=== PATIENT | female | born 1980 | race Caucasian/White ===

== ENCOUNTER 2018-01-16 08:50 | Emergency (ER) | payer OTHER ==
[2018-01-16] MEDS ORDERED: NA CHLORIDE 0.9% 1,000 ML ONE (09:14)
[2018-01-16 09:22] LABS: Absolute Lymphocytes (CBC) 1.8 K/uL (0.7-4.9); Absolute Monocytes 0.7 K/uL (0.1-1.3); Basophils % 0.9 % (0-1.3); Eosinophils % 0.8 % (0-4.4); Hematocrit 42.2 % (36.0-45.0); Lymphocytes % 31.2 % (15.3-44.8); MCV 97.9 fL (80-100); MPV 8.2 fL (7.6-11.3); Monocytes % 13.2 % (3.3-12.3); RBC Red Blood Cell Count 4.31 M/uL (3.86-4.86)
[2018-01-16 09:32] LABS: Protime INR 0.89
--- NOTE | 2018-01-16 09:37 | RAD REPORT ---
EXAM DESCRIPTION: CT - Head Brain Wo Cont - 01/16/2018 9:18 am CLINICAL HISTORY: Numbness and dizziness COMPARISON: None. TECHNIQUE: Computed axial tomography of the head was obtained. IV contrast was not requested. All CT scans are performed using dose optimization technique as appropriate and may include automated exposure control or mA/KV adjustment according to patient size. FINDINGS: An intracranial bleed is not seen . The ventricles are normal in caliber. No extra-axial fluid collection is noted. A 20 millimeter mass is present within the left frontal convexity medially which appears extra-axial. It contains calcification. Fluid within the sinuses/ mastoids is not seen. IMPRESSION: 20 millimeter left frontal mass likely representing a meningioma. Surrounding edema is n ot seen. No acute intracranial abnormality is noted. If the patient's symptoms persist MRI of the brain would be recommended
[2018-01-16 09:51] LABS: ALT/SGPT 30 U/L (12-78); AST/SGOT 29 U/L (15-37); Albumin 4.2 g/dL (3.4-5.0); Alkaline Phosphatase 57 U/L (45-117); BUN Blood Urea Nitrogen 14 mg/dL (7-18); Bicarbonate 28 mmol/L (21-32); Bilirubin Direct < 0.1 mg/dL (0-0.2); Bilirubin Total 0.3 mg/dL (0.2-1.0); Glucose Level 107 mg/dL (74-106); Magnesium 1.8 mg/dL (1.8-2.4); Protein, Total 7.8 g/dL (6.4-8.2); Sodium Level 135 mmol/L (136-145)
[2018-01-16 09:54] LABS: Potassium 2.9 mmol/L (3.5-5.1)
--- NOTE | 2018-01-16 10:42 | RAD REPORT ---
EXAM DESCRIPTION: RAD - Chest Single View - 01/16/2018 9:26 am CLINICAL HISTORY: Dizziness, shortness of breath COMPARISON: December 2016 TECHNIQUE: AP portable chest image was obtained 0924 hours . FINDINGS: Lungs are clear. Heart and vasculature are normal. No measurable pleural effusion and no p neumothorax. No gross bony abnormality seen. No acute aortic findings suspected. IMPRESSION: No acute cardiopulmonary process. No significant change from comparison.
--- NOTE | 2018-01-16 11:03 | RAD REPORT ---
EXAM DESCRIPTION: MRI - Brain W/Wo Cont - 01/16/2018 10:47 am CLINICAL HISTORY: Numbness and dizziness. Brain mass COMPARISON: January 16, 2018 cat scan TECHNIQUE: Axial, sagittal, and coronal magnetic images of the brain were obtained. 16 cc Magnevist administered intravenously. FINDINGS: A 19 millimeter mass is present along the medial left frontal convexity. It is extra-axial . It has Iso signal on T2 weighted sequences. It exhibits intense enhancement. No surrounding edema i s noted. This has the appearance of a meningioma. Diffusion-weighted/ADC mapping does not reveal evidence of acute infarction. The ventricles are normal caliber. An extra-axial fluid collection is not seen. The sinuses and mastoids are clear. IMPRESSION: 19 millimeter meningioma along the left frontal convexity without surrounding edema
--- NOTE | 2018-01-16 11:40 | EDPHYS ---
Physician Documentation [facility] Name: Sonya Grullon Age: 37 yrs Sex: Female : 1980 Arrival Date: 01/16/2018 Time: 08:51 Bed 5 Private MD: Jaycob Hillman T ED Physician Shae Nolberto HPI: 01/16 12:59 This 37 yrs old Female presents to ER via Wheelchair with complaints of wa Numbness Of Face, Loss Of Vision, DISORIENTED. 12:59 This 37 yrs old Female presents to ER via Wheelchair with complaints of wa Numbness Of Face, Loss Of Vision, DISORIENTED. 11:34 Onset: The symptoms/episode began/occurred just prior to arrival. Duration: This was a wa single incident, The episode is continuous. Context: the episode(s) was witnessed, by co-worker(s). 12:59 The patient's problem is reported as sudden onset dizziness, described as lightheaded wa with feeling she was going to pass out. noted R eye blurry then extended to L eye as well. happened while on the toilet urinating. denies PATTERSON, speech impediment, SOB, chest pain or palpitations. denies facial numbness to me. . The symptoms are alleviated by nothing. The symptoms are aggravated by nothing. Associated signs and symptoms: Pertinent positives: dizziness, lightheadedness, Pertinent negatives: abdominal pain, chest pain, confusion, headache. Severity of symptoms: At their worst the symptoms were moderate in the emergency department the symptoms have improved markedly. Patient's baseline: Neuro: alert and fully oriented, Motor: no deficits, Ambulation: walks without assistance, Speech: normal, The patient has a previous history of none. The patient has not experienced similar symptoms in the past. The patient has not recently seen a physician. Historical: - Allergies: 09:16 No Known Allergies; ph - Home Meds: 09:16 None [Active]; ph - PMHx: 09:16 None; ph - PSHx: 09:16 kidney donor (L); Hysterectomy; breast augmenation; ph - Immunization history:: Adult Immunizations unknown. - Social history:: Smoking status: Patient uses tobacco products, smokes one pack cigarettes per day. - Ebola Screening: : No symptoms or risks identified at this time. - Family history:: not pertinent. - Hospitalizations: : No recent hospitalization is reported. ROS: 13:03 Constitutional: Negative for fever, chills, and weight loss, Eyes: Negative for injury, wa pain, redness, and discharge, ENT: Negative for injury, pain, and discharge, Neck: Negative for injury, pain, and swelling, Cardiovascular: Negative for chest pain, palpitations, and edema, Respiratory: Negative for shortness of breath, cough, wheezing, and pleuritic chest pain, Abdomen/GI: Negative for abdominal pain, nausea, vomiting, diarrhea, and constipation, Back: Negative for injury and pain, : Negative for injury, bleeding, discharge, and swelling, MS/Extremity: Negative for injury and deformity, Skin: Negative for injury, rash, and discoloration. 13:03 Neuro: Positive for dizziness, Negative for altered mental status, gait disturbance, headache, hearing loss, numbness, speech changes, near syncope. 13:03 All other systems are negative. Exam: 13:04 Radiologist reports: 20 mm meningioma. otherwise no acute process wa 13:04 Constitutional: This is a well developed, well nourished patient who is awake, alert, and in no acute distress. Head/Face: Normocephalic, atraumatic. Eyes: Pupils equal round and reactive to light, extra-ocular motions intact. Lids and lashes normal. Conjunctiva and sclera are non-icteric and not injected. Cornea within normal limits. Periorbital areas with no swelling, redness, or edema. ENT: Nares patent. No nasal discharge, no septal abnormalities noted. Tympanic membranes are normal and external auditory canals are clear. Oropharynx with no redness, swelling, or masses, exudates, or evidence of obstruction, uvula midline. Mucous membranes moist. Neck: Trachea midline, no thyromegaly or masses palpated, and no cervical lymphadenopathy. Supple, full range of motion without nuchal rigidity, or vertebral point tenderness. No Meningismus. Chest/axilla: Normal chest wall appearance and motion. Nontender with no deformity. No lesions are appreciated. Cardiovascular: Regular rate and rhythm with a normal S1 and S2. No gallops, murmurs, or rubs. Normal PMI, no JVD. No pulse deficits. Respiratory: Lungs have equal breath sounds bilaterally, clear to auscultation and percussion. No rales, rhonchi or wheezes noted. No increased work of breathing, no retractions or nasal flaring. Abdomen/GI: Soft, non-tender, with normal bowel sounds. No distension or tympany. No guarding or rebound. No evidence of tenderness throughout. Back: No spinal tenderness. No costovertebral tenderness. Full range of motion. Skin: Warm, dry with normal turgor. Normal color with no rashes, no lesions, and no evidence of cellulitis. MS/ Extremity: Pulses equal, no cyanosis. Neurovascular intact. Full, normal range of motion. Psych: Awake, alert, with orientation to person, place and time. Behavior, mood, and affect are within normal limits. 13:04 Neuro: Orientation: is normal, Mentation: is normal, Memory: is normal, Cranial nerves: grossly normal, Cerebellar function: normal finger to nose testing, heel to simms testing is normal, able to perform alternating rapid hand movements, Motor: is normal, Sensation: is normal, Gait: is steady. Vital Signs: 09:13 BP 158 / 96; Pulse 118; Resp 24; Temp 97.9; Pulse Ox 98% on R/A; Weight 50.35 kg; ph Height 5 ft. 5 in. (165.10 cm); Pain 0/10; 09:54 BP 119 / 61; Pulse 85; Resp 16; Pulse Ox 100% on R/A; tw2 11:09 BP 112 / 85; Pulse 76; Resp 18; Pulse Ox 99% on R/A; ph 09:13 Body Mass Index 18.47 (50.35 kg, 165.10 cm) ph NIH Stroke Scale Scores: 09:05 NIHSS Score: 0 ph MDM: 09:06 Patient medically screened. fl 13:06 Differential diagnosis: CVA, TIA, metabolic disorder, nml exam. will work up with fl cardiac and neuro eval. will reassess. Data reviewed: vital signs, nurses notes, lab test result(s), EKG, radiologic studies. Test interpretation: by ED physician or midlevel provider: EKG: HR 97. nml ekg. labs noted for hypokalemia. MRI brain: no infarct. L medial frontal 19 mm meningioma. Response to treatment: the patient's symptoms have markedly improved after treatment, the patient's symptoms have resolved after treatment. ED course: replaced potassium. symptoms resolved in ED. discussed MRI findings. mani/c'd home with close f/u with neuro and neurosurg. 01/16 09:06 Order name: Basic Metabolic Panel; Complete Time: 09:58 fl 01/16 09:06 Order name: CBC with Diff; Complete Time: :58 fl 01/16 09:06 Order name: LFT's; Complete Time: 09:58 fl 01/16 09:06 Order name: Magnesium; Complete Time: :58 fl 01/16 09:06 Order name: PT-INR; Complete Time: :58 fl 01/16 09:06 Order name: Troponin (emerg Dept Use Only); Complete Time: :58 fl 01/16 09:06 Order name: XRAY Chest (1 view); Complete Time: 11:16 fl 01/16 09:06 Order name: Cardiac monitoring; Complete Time: 09:09 fl 01/16 09:07 Order name: CT Head Brain wo Cont; Complete Time: 09:58 fl 01/16 10:42 Order name: Brain W/Wo Cont; Complete Time: 11:15 EDMS 01/16 10:49 Order name: EKG Electrocardiogram [facility] 01/16 09:06 Order name: EKG - Nurse/Tech; Complete Time: 09:12 fl 01/16 09:06 Order name: IV Saline Lock; Complete Time: 09:38 fl 01/16 09:06 Order name: Labs collected and sent; Complete Time: 09:09 fl 01/16 09:06 Order name: O2 Sat Monitoring; Complete Time: 09:09 fl Administered Medications: 09:40 Drug: NS 0.9% 1000 ml Route: IV; Rate: 1 bolus; Site: left antecubital; ph Point of Care Testing: Blood Glucose: 09:01 Blood Glucose: 96 mg/dL; ph Ranges: Critical Glucose Levels:Adult <50 mg/dl or >400 mg/dl <40 mg/dl or >180 mg/dl Disposition: 01/16/18 11:39 Discharged to Home. Impression: Acute dizziness, L frontal meningioma, Hypokalemia. - Condition is Stable. - Discharge Instructions: Hypokalemia. - Prescriptions for Potassium Chloride 10 mEq Oral Capsule, Sustained Release - take 2 tablet by ORAL route every 12 hours for 5 days; 20 tablet. - Work release form, Medication Reconciliation Form, Thank You Letter, Antibiotic Education, Prescription Opioid Use form. - Follow up: Armando Hoyos MD; When: 2 - 3 days; Reason: evaluate the mass on the brain for potential treatment. Follow up: Pelon Downing MD; When: 2 - 3 days; Reason: Recheck today's complaints. - Problem is new. - Symptoms have improved. - Notes: do follow up with the neurosurgeon to evaluate the meningioma on the brain. also see the neurologist for dizziness. return if worsening concerns immediately. take potassium. quit the supplements you are taking Bring the CT scan and MRI scan disks to your appointment NIH Stroke Scale - NIH Stroke Score Date: 01/16/2018 Time: 09:05 Total Score = 0 1a. Level of Consciousness (LOC) - 0(Alert) 1b. Level of Consciousness (LOC) (Year \T\ Age) - 0(Both) 1c. LOC Commands (Open \T\ Closes Eyes/Material Expeditor) - 0(Both) 2. Best Gaze (Lateral Gaze Paresis) - 0(Normal) 3. Visual Field Loss - 0(No visual loss) 4. Facial Palsy - 0(Normal) 5a. Left Arm: Motor (10-second hold) - 0(No drift) 5b. Right Arm: Motor (10-second hold) - 0(No drift) 6a. Left Leg: Motor (5-second hold - always test supine) - 0(No drift) 6b. Right Leg: Motor (5-second hold - always test supine) - 0(No drift) 7. Limb Ataxia (finger/nose \T\ heel/simms - test with eyes open) - 0(Absent) 8. Sensory Loss (pinprick arms/legs/face) - 0(Normal) 9. Best Language: Aphasia (description/naming/reading) - 0(No aphasia) 10. Dysarthria (speech clarity - read or repeat words) - 0(Normal) 11. Extinction and Inattention (visual/tactile/auditory/spatial/personal) - 0(No abnormality) Initials: ph Signatures: Dispatcher [employer] EDMS Cathy Thompson RN RN Breana Martin RN RN Nolberto Kaufman MD MD wa Corrections: (The following items were deleted from the chart) 10:42 10:02 Brain With Cont+MRI.RAD.BRZ ordered. EDMS EDMS 11:37 11:37 01/16/2018 11:37 Discharged to Home. Impression: Acute Dizziness; Left wa Medial convixity meningioma. Condition is Stable. Forms are Medication Reconciliation Form, Thank You Letter, Antibiotic Education, Prescription Opioid Use. Follow up: Armando Hoyos; When: 2 - 3 days; Reason: Recheck today's complaints, Repeat Beta-HCG (48 Hours), to evaluate the mass on the brain further. Follow up: Pelon Downing; When: 2 - 3 days; Reason: Recheck today's complaints. Problem is new. Symptoms have improved. fl 11:38 11:37 01/16/2018 11:37 Discharged to Home. Impression: Acute Dizziness; Left wa Medial convixity meningioma; Abnormal biochemical finding on screening of mother; hypokalemia. Condition is Stable. Forms are Medication Reconciliation Form, Thank You Letter, Antibiotic Education, Prescription Opioid Use. Follow up: Armando Hoyos; When: 2 - 3 days; Reason: Recheck today's complaints, Repeat Beta-HCG (48 Hours), to evaluate the mass on the brain further. Follow up: Pelon Downing; When: 2 - 3 days; Reason: Recheck today's complaints. Problem is new. Symptoms have improved. fl 11:52 11:39 01/16/2018 11:39 Discharged to Home. Impression: Acute dizziness; L ss frontal meningioma; Hypokalemia. Condition is Stable. Forms are Medication Reconciliation Form, Thank You Letter, Antibiotic Education, Prescription Opioid Use. Follow up: Armando Hoyos; When: 2 - 3 days; Reason: evaluate the mass on the brain for potential treatment. Follow up: Pelon Downing; When: 2 - 3 days; Reason: Recheck today's complaints. Problem is new. Symptoms have improved. wa
--- NOTE | 2018-01-16 11:40 | ER ---
Nurse's Notes [facility] Name: Sonya Grullon Age: 37 yrs Sex: Female : 1980 Arrival Date: 01/16/2018 Time: 08:51 Bed 5 Private MD: Jaycbo Hillman T Diagnosis: Acute dizziness;L frontal meningioma;Hypokalemia Presentation: 01/16 08:50 Presenting complaint: Patient states: approx 30 minutes prior to arrival, patient ss reports she suddenly had vision changes to R eye that also seemed to be affecting her L eye as well. Pt also c/o of dizziness and states that on arrival to ED, her vision has improved, but she is still lightheaded and dizzy. Pt reports she has not had breakfast this morning. Transition of care: patient was not received from another setting of care. Onset of symptoms was January 16, 2018. Risk Assessment: Do you want to hurt yourself or someone else? Patient reports no desire to harm self or others. Initial Sepsis Screen: Does the patient meet any 2 criteria? No. Patient's initial sepsis screen is negative. Does the patient have a suspected source of infection? No. Patient's initial sepsis screen is negative. Care prior to arrival: None. 08:50 Method Of Arrival: Wheelchair ss 08:50 Acuity: BO 2 ss Historical: - Allergies: 09:16 No Known Allergies; ph - Home Meds: 09:16 None [Active]; ph - PMHx: 09:16 None; ph - PSHx: 09:16 kidney donor (L); Hysterectomy; breast augmenation; ph - Immunization history:: Adult Immunizations unknown. - Social history:: Smoking status: Patient uses tobacco products, smokes one pack cigarettes per day. - Ebola Screening: : No symptoms or risks identified at this time. - Family history:: not pertinent. - Hospitalizations: : No recent hospitalization is reported. Screenin:18 Abuse screen: Denies threats or abuse. Denies injuries from another. Nutritional ph screening: No deficits noted. Tuberculosis screening: No symptoms or risk factors identified. Fall Risk None identified. Assessment: 09:00 Reassessment: Dr. Kaufman at bedside to assess patient. Decision to not call "code ss stroke" as patient is having atypical neuro symptoms as described by Dr. Kaufman. 09:05 General: Appears in no apparent distress. comfortable, slender, well groomed, Behavior ph is cooperative, appropriate for age, anxious, Denies fever, feeling ill. Pain: Denies pain. Neuro: Level of Consciousness is awake, alert, obeys commands, Oriented to person, place, time, situation, Operations Specialist are equal bilaterally Moves all extremities. Full function Speech is normal, Facial symmetry appears normal, Facial symmetry: tongue is midline, Pupils are PERRLA, Reports dizziness, numbness in R side of face and head vision loss in R eye that has resolved. Denies difficulty swallowing, headache. Cardiovascular: Reports lightheadedness, Denies chest pain, fatigue, nausea, shortness of breath, Capillary refill < 3 seconds Rhythm is sinus tachycardia. Respiratory: Airway is patent Respiratory effort is even, unlabored, Respiratory pattern is regular, symmetrical. GI: No signs and/or symptoms were reported involving the gastrointestinal system. Patient currently denies abdominal pain, diarrhea, nausea, vomiting. Derm: Skin is intact, is healthy with good turgor, Skin is pink, warm \\T\\ dry. Musculoskeletal: Circulation, motion, and sensation intact. Range of motion: intact in all extremities. 09:13 Reassessment: Pt to CT now VIA stretcher. Co workers remain at bedside. ss 09:53 Reassessment: king Khalil in lab pts K+ is 2.9. Dr. Kaufman provider notified. tw2 11:08 Reassessment: Patient appears in no apparent distress at this time. Patient and/or ph family updated on plan of care and expected duration. Pain level reassessed. Patient is alert, oriented x 3, equal unlabored respirations, skin warm/dry/pink. Pt resting quietly, denies pain or nausea at this time. 11:18 Reassessment: Dr Kaufman at bedside to speak w/ pt about test results. ph Vital Signs: 09:13 BP 158 / 96; Pulse 118; Resp 24; Temp 97.9; Pulse Ox 98% on R/A; Weight 50.35 kg; ph Height 5 ft. 5 in. (165.10 cm); Pain 0/10; 09:54 BP 119 / 61; Pulse 85; Resp 16; Pulse Ox 100% on R/A; tw2 11:09 BP 112 / 85; Pulse 76; Resp 18; Pulse Ox 99% on R/A; ph 09:13 Body Mass Index 18.47 (50.35 kg, 165.10 cm) ph NIH Stroke Scale Scores: 09:05 NIHSS Score: 0 ph ED Course: 08:51 Patient arrived in ED. sb2 08:52 Jaycob Hillman MD is Private Physician. sb2 09:05 Nolberto Kaufman MD is Attending Physician. wa 09:05 Initial lab(s) drawn, by me, sent to lab. Missed attempt(s): 20 gauge in right ph antecubital area. Bleeding controlled, band aid applied, catheter tip intact. 09:12 Breana Martin, RN is Primary Nurse. ph 09:14 Triage completed. ss 09:18 CT completed. Patient tolerated procedure well. Patient moved to CT via stretcher. sj Patient moved back from CT. 09:18 Arm band placed on. ph 09:19 CT Head Brain wo Cont In Process Unspecified. EDMS 09:20 Patient has correct armband on for positive identification. Placed in gown. Bed in low ph position. Call light in reach. Side rails up X 1. sound system installer on. Pulse ox on. NIBP on. Warm blanket given. 09:25 X-ray completed. Portable x-ray completed in exam room. Patient tolerated procedure ag1 well. 09:25 XRAY Chest (1 view) In Process Unspecified. EDMS 09:37 Inserted saline lock: 22 gauge in left antecubital area, using aseptic technique. jb1 09:38 EKG done, by copier and printer field technician. reviewed by Nolberto Kaufman MD. at1 10:15 Patient moved to MRI via wheelchair. em2 10:47 Brain W/Wo Cont In Process Unspecified. EDMS 11:04 Patient moved back from MRI. lc 11:35 Armando Hoyos MD is Referral Physician. wa 11:36 Pelon Downing MD is Referral Physician. wa 11:38 Armando Hoyos MD is Referral Physician. wa 11:39 Pelon Downing MD is Referral Physician. wa 11:51 No provider procedures requiring assistance completed. Patient did not have IV access ss during this emergency room visit. Administered Medications: 09:40 Drug: NS 0.9% 1000 ml Route: IV; Rate: 1 bolus; Site: left antecubital; ph Point of Care Testing: Blood Glucose: 09:01 Blood Glucose: 96 mg/dL; ph Ranges: Outcome: 11:37 Discharge ordered by . or 11:39 Discharge ordered by MD. or 11:51 Discharged to home ambulatory, with friend. 11:51 Condition: improved 11:51 Discharge instructions given to patient, friend, Instructed on discharge instructions, follow up and referral plans. medication usage, Demonstrated understanding of instructions, follow-up care, medications, Prescriptions given X 1. 11:52 Patient left the ED. NIH Stroke Scale - NIH Stroke Score Date: 01/16/2018 Time: 09:05 Total Score = 0 1a. Level of Consciousness (LOC) - 0(Alert) 1b. Level of Consciousness (LOC) (Year \\T\\ Age) - 0(Both) 1c. LOC Commands (Open \\T\\ Closes Eyes/Program Management Specialist) - 0(Both) 2. Best Gaze (Lateral Gaze Paresis) - 0(Normal) 3. Visual Field Loss - 0(No visual loss) 4. Facial Palsy - 0(Normal) 5a. Left Arm: Motor (10-second hold) - 0(No drift) 5b. Right Arm: Motor (10-second hold) - 0(No drift) 6a. Left Leg: Motor (5-second hold - always test supine) - 0(No drift) 6b. Right Leg: Motor (5-second hold - always test supine) - 0(No drift) 7. Limb Ataxia (finger/nose \\T\\ heel/simms - test with eyes open) - 0(Absent) 8. Sensory Loss (pinprick arms/legs/face) - 0(Normal) 9. Best Language: Aphasia (description/naming/reading) - 0(No aphasia) 10. Dysarthria (speech clarity - read or repeat words) - 0(Normal) 11. Extinction and Inattention (visual/tactile/auditory/spatial/personal) - 0(No abnormality) Initials: ph Signatures: Dispatcher [employer] Indra Woodard Lorena lc Jones, Susan sj Smirch, Shelby, RN RN Garo Hughes em2 Cherelle babin, community assistant EKG Tat1 Breana Martin RN RN Christina Naylor ag1 Izabel Lyn RN RN tw2 Nolberto Kaufman MD MD wa Billeau, Sheri sb2
== END 2018-01-16 11:52 | disposition home or self-care (01) ==
LOC: ER 08:50
DX: D32.0 Benign neoplasm of cerebral meninges (principal); E87.6 Hypokalemia; F17.210 Nicotine dependence, cigarettes, uncomplicated
CPT/HCPCS: 36415; 70450; 70553; 71045; 80048; 80076; 82962; 83735; 84484; 85025; 85610; 93005; 99285; J7030

== ENCOUNTER 2022-10-19 10:27 | Emergency (ER) | payer OTHER, SELFPAY ==
--- OUTSIDE RECORDS SUMMARY | 2022-10-19 10:30 | XMS REPORT | Continuity of Care Document ---
:1980 Author Organization [facility] t Address [address] [facility] [address] [place] [address] Care Team Providers Name Role Phone PCP, PATIENT DOES NOT HAVE A Primary Care Physician Unavaila JASPREET Butler Attending Clinician Unavailable Nurse, Davy Pob Immunization Attending Clinician Unavailable Jaspreet Barnett DO Attending Clinician Isael Koehler Attending Clinician Problems Condition Condition Condition Status Onset Resolution Last Treating Co mments Source Name Details Category Date Date Treatment Clinician Date Acute Acute Problem Active 2018-12-22 Memor ia confusiona confusiona 13:14:33 l l migraine l migraine He rmann (disorder) (disorder) Active Problem 12/22/2018 [facility] Benign Benign Problem Active 2018-12-22 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 (disorder) (disorder) Active Problem 12/22/2018 [facility] Confusiona Confusion Problem Active 2018-12-22 Memoria l state al state 13:14:33 l (disorder) (disorder) He rmann Active Problem 12/22/2018 [facility] Paresthesi Paresthes Problem Active 2018-12-22 Memoria a ia 13:14:33 l (finding) (finding) Herm nigel Active Problem 12/22/2018 [facility] Allergies, Adverse Reactions, Alerts Allergy Allergy Status Severity Reaction(s) Onset Inactive Treating Comm ents Source Name Type Date Date Clinician No Known No Known Active Memori a Medicati Medicati l on on Wesly Allergie Allergie s s NO KNOWN Drug Active Univers ALLERGIE Class ity of S [facility] Social History Social Habit Start Date Stop Date Quantity Comments Source Social History 2018-02-19 2018-02-19 Ander martell 16:31:32 16:31:32 Sex Assigned At [birth year] [facility] 00:00:00 00:00:00 [facility] Smoking Status Start Date Stop Date Source Unknown if ever smoked [facility] Medications Ordered Filled Start Stop Current Ordering Indication Dosage Frequency Signature Comments Components Source Medication Medication Date Date Medication? Clinician (SIG) Name Name Sertraline 2017-07 Yes 25 mg = 1 Me moria 25 MG Oral 0-02 tab, PO, l Tablet 19:25: Daily, # Wesly [Zoloft] 00 30 tab, 1 Refill(s), Pharmacy: [id number] Immunizations Ordered Filled Immunization Date Status Comments Sourc e Immunization Name Name SARS-COV-2 COVID-19 2021-05-16 Completed Unive rsity of PFIZER VACCINE 00:00:00 [facility] SARS-COV-2 COVID-19 2021-03-07 Completed Unive rsity of PFIZER VACCINE 00:00:00 [facility] Vital Signs Vital Name Observation Time Observation Value Comments Source Weight 2018-04-30 18:58:[address] [facility] BMI Calculated 2018-04-30 18:58:00 Thelma Rodriguez Height 2018-04-30 18:58:[address] [facility] Procedures Procedure Date / Time Performing Clinician Source Performed SARS-COV-2 COVID-19 2021-05-16 15:57:03 Doctor Unassigned, No [facility] [place] VACCINE,0.3ML,IM Name [facility] (PFIZER) Breast augmentation [facility] Hysterectomy [facility] Kidney operation [facility] n Encounters Start End Encounter Admission Attending Care Care Encounter Source Date/Time Date/Time Type Type Clinicians Facility Department ID 2021-05-16 2021-05-[address] [facility] [id number] Univers 11:00:00 10:56:41 JASPREET grace [facility] 2021-05-16 2021-05-16 Imm/Inj Nurse, Adc Pob Immunization [facility] [id number] Univers 10:56:16 10:56:41 Visit Jaspreet Barnett [id number] sanjay Telephone [id number] Rut huang Professio [id number] De dical [address] 2021-03-07 2021-03-[address] [facility] [id number] Univers 11:00:00 10:45:36 JASPREET grace [facility] 2018-06-04 2018-06-04 Ambulatory nullFlavo MNA [id number] Memoria 20:00:00 20:00:00 Pre-Reg r Neurology 05 george Trevor Jarrell 2018-06-04 2018-06-04 Outpatient TRE KoehlerSCHER MHMISCHER [id number] 14:00:00 14:00:00 Isael 05 Nolberto 2018-04-30 2018-05-01 Outpatient nullFlavo MNA [id number] Memoria 19:00:00 04:59:59 r Neurology 04 george Trevor Jarrell 2018-04-30 2018-04-30 Outpatient TRE KoehlerSCHMICHAEL PARKSMISCHER [id number] 14:00:00 23:59:59 Isael 04 Nolberto 2018-04-30 2018-04-30 Outpatient MHIE MHIE [id number] Memoria 14:00:00 14:00:00 04 george Jarrell 2018-03-20 2018-03-20 Outpatient MHIE MHIE [id number] Memoria 15:45:00 15:45:00 03 george Jarrell 2018-02-28 2018-02-28 Outpatient MHIE MHIE [id number] Memoria 10:00:00 10:00:00 01 george Jarrell 2018-02-26 2018-02-26 Outpatient MHIE MHIE [id number] Memoria 10:00:00 10:00:00 02 george Jarrell 2018-02-19 2018-02-19 Outpatient MHIE MHIE [id number] Memoria 11:00:00 11:00:00 00 george Jarrell Results This patient has no known results.
[2022-10-19] MEDS ORDERED: DIAZEPAM 5 MG TABLET ONE (10:53)
[2022-10-19] MEDS ORDERED: Ringers Lactate 1,000 ML IV ONE (10:54)
[2022-10-19 11:12] LABS: Absolute Lymphocytes (CBC) 1.6 K/uL (0.7-4.9); Hematocrit 43.9 % (36.0-45.0); MCV 98.2 fL (80-100); MPV 7.5 fL (7.6-11.3); RBC Red Blood Cell Count 4.47 M/uL (3.86-4.86)
--- NOTE | 2022-10-19 11:31 | RAD REPORT ---
EXAM DESCRIPTION: Melquiadest Single View10/19/2022 11:14 am CLINICAL HISTORY: PALPITATIONS COMPARISON: Chest Pa And Lat (2 Views) dated 04/18/2021; Chest Single View dated 01/16/2018; Chest Pa And Lat (2 Views) dated 01/15/2017 TECHNIQUE: Portable AP view of the chest. FINDINGS: The lungs are clear. No pneumothorax or effusion. The cardiomediastinal contours are unrem arkable. IMPRESSION: No acute cardiopulmonary process.
[2022-10-19 12:13] LABS: ALT/SGPT 24 U/L (13-56); AST/SGOT 17 U/L (15-37); Albumin 3.6 g/dL (3.4-5.0); Alkaline Phosphatase 67 U/L (45-117); BUN Blood Urea Nitrogen 13 mg/dL (7-18); Bicarbonate 27 mEq/L (21-32); Bilirubin Direct < 0.1 mg/dL (0-0.2); Bilirubin Total 0.3 mg/dL (0.2-1.0); Glomerular Filtration Rate 115 ml/min (=/>90); Glucose Level 95 mg/dL (74-106); NT PRO-BNP 27 pg/mL (<125); Protein, Total 7.2 g/dL (6.4-8.2); Sodium Level 135 mEq/L (136-145); Troponin High Sensitivity < 3.0 pg/mL (<58.9)
--- NOTE | 2022-10-19 12:35 | ER ---
Nurse's Notes [facility] Name: Sonya Grullon Age: 41 yrs Sex: Female : 1980 Arrival Date: 10/19/2022 Time: 10:32 Bed 20 Private MD: Diagnosis: Dizziness and giddiness Presentation: 10/19 10:37 Chief complaint: EMS states: client was light headed and dizzy today and reports high kc6 blood pressure. Coronavirus screen: Vaccine status: Patient reports receiving the 2nd dose of the covid vaccine. At this time, the client does not indicate any symptoms associated with coronavirus-19. Ebola Screen: No symptoms or risks identified at this time. Initial Sepsis Screen: Does the patient meet any 2 criteria? No. Patient's initial sepsis screen is negative. Does the patient have a suspected source of infection? No. Patient's initial sepsis screen is negative. Risk Assessment: Do you want to hurt yourself or someone else? Patient reports no desire to harm self or others. Onset of symptoms was October 19, 2022. 10:37 Method Of Arrival: EMS: [facility] kc6 10:37 Acuity: BO 3 kc6 Triage Assessment: 10:38 General: Appears in no apparent distress. comfortable, Behavior is cooperative, kc6 appropriate for age, anxious. Pain: Denies pain. EENT: No signs and/or symptoms were reported regarding the EENT system. Neuro: Baeza Agitation-Sedation Scale (RASS): 0 - Alert and Calm Level of Consciousness is awake, alert, obeys commands, Oriented to person, place, time, situation, Appropriate for age. Cardiovascular: Heart tones S1 S2 present Capillary refill < 3 seconds. Respiratory: Airway is patent Trachea midline Respiratory effort is even, unlabored, Respiratory pattern is regular, symmetrical. GI: No signs and/or symptoms were reported involving the gastrointestinal system. : No signs and/or symptoms were reported regarding the genitourinary system. Derm: No signs and/or symptoms reported regarding the dermatologic system. Skin is intact, Skin is pink, warm \T\ dry. Musculoskeletal: No signs and/or symptoms reported regarding the musculoskeletal system. Circulation, motion, and sensation intact. Capillary refill < 3 seconds, Range of motion: intact in all extremities. Historical: - Allergies: 10:38 No Known Allergies; kc6 - PMHx: 10:38 Hypertensive disorder; kc6 - PSHx: 10:38 hysterectomy; kidney donor; breast augmentation; kc6 - Immunization history:: Client reports receiving the 2nd dose of the Covid vaccine, Flu vaccine is not up to date. - Social history:: Smoking status: Patient reports the use of cigarette tobacco products, smokes one pack cigarettes per day. Screenin:41 [facility] ED Fall Risk Assessment (Adult) History of falling in the last 3 months, kc6 including since admission No falls in past 3 months (0 pts) Confusion or Disorientation No (0 pts) Intoxicated or Sedated No (0 pts) Impaired Gait No (0 pts) Mobility Assist Device Used No (0 pt) Altered Elimination No (0 pt) Score/Fall Risk Level 0 - 2 = Low Risk Oriented to surroundings, Maintained a safe environment, Educated pt \T\ family on fall prevention, incl call for assistance when getting out of bed, Assessed \T\ reinforced patient's understanding of fall precautions, Hourly rounding (assess needs \T\ fall precautionary measures) done. Abuse screen: Denies threats or abuse. Denies injuries from another. Nutritional screening: No deficits noted. Tuberculosis screening: No symptoms or risk factors identified. Assessment: 10:37 Reassessment: please see triage assessment. kc6 11:37 Reassessment: Patient appears in no apparent distress at this time. No changes from kc6 previously documented assessment. Patient and/or family updated on plan of care and expected duration. Pain level reassessed. Patient is alert, oriented x 3, equal unlabored respirations, skin warm/dry/pink. Vital Signs: 10:37 BP 145 / 90; Pulse 77; Resp 18 S; Temp 98(O); Pulse Ox 100% on R/A; Weight 58.97 kg kc6 (R); Height 5 ft. 5 in. (R); Pain 0/10; 11:41 BP 120 / 86; Pulse 78; Resp 19 S; Pulse Ox 100% on R/A; kc6 10:37 Body Mass Index 21.63 (58.97 kg, 165.1 cm) 6 10:37 Pain Scale: Adult [facility] ED Course: 10:32 Patient arrived in ED. bp 10:34 Houston Lind MD is Attending Physician. jr11 10:37 Crow, Stacie, RN is Primary Nurse. kc6 10:38 Triage completed. kc6 10:38 Arm band placed on. kc6 10:41 Patient has correct armband on for positive identification. Placed in gown. Bed in low kc6 position. Call light in reach. Side rails up X2. 10:41 Maintain EMS IV. Dressing intact. Good blood return noted. Site clean \T\ dry. Gauge \T\ ludin 6 site: 20G LAC. 11:16 XRAY Chest (1 view) In Process Unspecified. EDMS 12:34 David Heck MD is Referral Physician. jr11 12:51 No provider procedures requiring assistance completed. IV discontinued, intact, kc6 bleeding controlled, No redness/swelling at site. Pressure dressing applied. Administered Medications: 11:01 Drug: Lactated Ringers Solution IV 1000 ml Route: IV; Rate: 9999 bolus; Site: left kc6 antecubital; 12:01 Follow up: Response: No adverse reaction; IV Status: Completed infusion; IV Intake: kc6 1000ml 11:01 Drug: Diazepam PO 2.5 mg Route: PO; kc6 12:01 Follow up: Response: No adverse reaction; Anxiety decreased kc6 Medication: 12:51 VIS not applicable for this client. kc6 Intake: 12:01 IV: 1000ml; Total: 1000ml. kc6 Outcome: 12:34 Discharge ordered by . jr11 12:51 Discharged to home ambulatory, with family. kc6 12:51 Condition: stable 12:51 Discharge instructions given to patient, Instructed on discharge instructions, follow up and referral plans. Demonstrated understanding of instructions, follow-up care, medications. 12:51 Patient left the ED. kc6 Signatures: Dispatcher [employer] EDAmaury Tabor, RN RN Houston Milan MD MD jr11 Stacie Crow, JORGE RN kc6
--- NOTE | 2022-10-19 12:35 | EDPHYS ---
Physician Documentation [facility] Name: Sonya Grullon Age: 41 yrs Sex: Female : 1980 Arrival Date: 10/19/2022 Time: 10:32 Bed 20 Private MD: ED Physician Houston Lind HPI: 10/19 10:55 This 41 yrs old Female presents to ER via EMS with complaints of Dizziness. jr11 10:55 Patient is a 41-year-old with history of hypertension, recently put on losartan about a jr11 week ago. Patient states that over the last 2 to 3 weeks she has had episodes in which she feels very lightheaded heart beats rapidly blood pressure at times is high like this morning systolic in the 150s. Patient has not had a syncopal episode from this, has not had work-up. Patient believes that this is secondary to her blood pressure being in the 150s. Patient has not daily checked her blood pressure denies exertional pain, no tearing pain, does not radiate to the back, does not cross the diaphragm. No diaphoresis, no vomiting. No syncope or near-syncope. . Historical: - Allergies: 10:38 No Known Allergies; kc6 - PMHx: 10:38 Hypertensive disorder; kc6 - PSHx: 10:38 hysterectomy; kidney donor; breast augmentation; kc6 - Immunization history:: Client reports receiving the 2nd dose of the Covid vaccine, Flu vaccine is not up to date. - Social history:: Smoking status: Patient reports the use of cigarette tobacco products, smokes one pack cigarettes per day. ROS: 10:55 All other systems are negative. jr11 Exam: 10:55 Constitutional: This is a well developed, well nourished patient who is awake, alert, jr11 and in no acute distress. Head/Face: Normocephalic, atraumatic. Eyes: Extra-ocular motions intact. Lids and lashes normal. Conjunctiva and sclera are non-icteric and not injected. Cornea within normal limits. Periorbital areas with no swelling, redness, or edema. Neck: Trachea midline, no thyromegaly or masses palpated, and no cervical lymphadenopathy. Supple, full range of motion without nuchal rigidity, or vertebral point tenderness. No Meningismus. Chest/axilla: Normal chest wall appearance and motion. Nontender with no deformity. No lesions are appreciated. Cardiovascular: Regular rate and rhythm with a normal S1 and S2. No gallops, murmurs, or rubs. Normal PMI, no JVD. No pulse deficits. Respiratory: Lungs have equal breath sounds bilaterally, clear to auscultation and percussion. No rales, rhonchi or wheezes noted. No increased work of breathing, no retractions or nasal flaring. Abdomen/GI: Soft, non-tender, with normal bowel sounds. No distension or tympany. No guarding or rebound. No evidence of tenderness throughout. Back: No spinal tenderness. No costovertebral tenderness. Full range of motion. Skin: Warm, dry with normal turgor. Normal color with no rashes, no lesions, and no evidence of cellulitis. MS/ Extremity: Pulses equal, no cyanosis. Neurovascular intact. Full, normal range of motion. Neuro: Awake and alert, GCS 15, oriented to person, place, time, and situation. No gross motor or sensory deficits. Vital Signs: 10:37 BP 145 / 90; Pulse 77; Resp 18 S; Temp 98(O); Pulse Ox 100% on R/A; Weight 58.97 kg kc6 (R); Height 5 ft. 5 in. (R); Pain 0/10; 11:41 BP 120 / 86; Pulse 78; Resp 19 S; Pulse Ox 100% on R/A; kc6 10:37 Body Mass Index 21.63 (58.97 kg, 165.1 cm) [facility] 10:37 Pain Scale: Adult kc6 MDM: 10:34 [facility] medically [facility]. [facility] 10[facility] Differential diagnosis: cardiac arrhythmia, generalized weakness, hyperventilation, jr11 anxiety. Data reviewed: vital signs, nurses notes. ED course: EKG interpreted by me shows normal sinus rhythm at a rate of 67, normal axis, normal intervals. Additional history gathered from EMS, she was never hypotensive, she was hypertensive in the 150s. traffic monitor specialist interpreted by me shows normal sinus rhythm rate of 62.. 12:33 ED course: Pt feeling better, BP normal, will refer to cards for ?arrythmia . [facility] 10/19 10:38 Order name: Basic Metabolic Panel; Complete Time: 12:30 [facility] 10/[facility] 10:38 Order name: CBC with Diff; Complete Time: 11:33 10/19 10:38 Order name: LFT's; Complete Time: 12:30 10/19 10:38 Order name: NT PRO-BNP; Complete Time: 12:10/19 10:38 Order name: Troponin HS; Complete Time: 12:10/19 10:38 Order name: XRAY Chest (1 view); Complete Time: 11:33 10/19 10:38 Order name: EKG; Complete Time: 10:39 10/19 10:38 Order name: Cardiac monitoring; Complete Time: 10:41 10/19 10:38 Order name: EKG - Nurse/Tech; Complete Time: :10/19 10:38 Order name: IV Saline Lock; Complete Time: :10/19 10:38 Order name: Labs collected and sent; Complete Time: 11:10/19 10:38 Order name: O2 Per Protocol; Complete Time: :10/19 10:38 Order name: O2 Sat Monitoring; Complete Time: :10/19 11:15 Order name: Labs - recollect needed: recollect green top; Complete Time: 11:40 bd Administered Medications: 11:01 Drug: Lactated Ringers Solution IV 1000 ml Route: IV; Rate: 9999 bolus; Site: left kc6 antecubital; 12:01 Follow up: Response: No adverse reaction; IV Status: Completed infusion; IV Intake: kc6 1000ml 11:01 Drug: Diazepam PO 2.5 mg Route: PO; [facility] 12:01 Follow up: Response: No adverse reaction; Anxiety decreased [facility] Disposition Summary: 10/19/22 12:34 Discharge Ordered Location: Home jr11 Condition: Stable jr11 Diagnosis - Dizziness and giddiness jr11 Followup: jr11 - With: David Heck MD - When: 1 - 2 days - Reason: Re-evaluation by your physician Discharge Instructions: - Discharge Summary Sheet jr11 - Dizziness jr11 Forms: - Work release form bd - Medication Reconciliation Form jr11 - Thank You Letter jr11 - Antibiotic Education jr11 - Prescription Opioid Use jr11 Signatures: Dispatcher [employer] Mesha Forbes Jose, MD MD jr11 Stacie Crow, RN RN kc6
[2022-10-19 15:52] VITALS: TEMP 98; O2SAT 100
[2022-10-19 15:53] VITALS: BP 120/86
--- NOTE | 2022-10-20 13:42 | EKG ---
Test Date: 2022-10-19 Test Time: 10:43:31 [employer] Worker: CHARI MEASUREMENT RESULTS: Intervals: Rate: 67 NC: 170 QRSD: 82 QT: 374 QTc: 395 [place]: P: 46 NC: 170 QRS: 67 T: 47 INTERPRETIVE STATEMENTS: Normal sinus rhythm with sinus arrhythmia Compared to ECG 01/16/2018 09:26:36 No significant changes Electronically Signed On 10-20-22 13:38:57 CDT by David Heck
== END 2022-10-19 12:51 | disposition home or self-care (01) ==
LOC: ER 10:27
DX: R42 Dizziness and giddiness (principal); I10 Essential (primary) hypertension; F17.210 Nicotine dependence, cigarettes, uncomplicated
CPT/HCPCS: 36415; 71045; 80048; 80076; 83880; 84484; 85025; 93005; J7120